=== PATIENT | male | born 1935 | race Caucasian/White ===

== ENCOUNTER 2022-09-21 11:17 | Emergency (ER) | payer MEDICARE ==
[2022-09-21] MEDS ORDERED: Bacitracin Oint 1 GM U/D Packet TOP ONE (12:19)
== END 2022-09-21 12:36 | disposition home or self-care (01) ==
LOC: JP.ED 11:17
DX: S00.01XA Abrasion of scalp, initial encounter (principal); E78.00 Pure hypercholesterolemia, unspecified; I10 Essential (primary) hypertension; Z79.899 Other long term (current) drug therapy; Z88.8 Allergy status to other drugs, medicaments and biological substances; Z79.01 Long term (current) use of anticoagulants; W01.198A Fall on same level from slipping, tripping and stumbling with subsequent striking against other object, initial encounter
CPT/HCPCS: 99283